=== PATIENT | male | born 1950 | race Asian ===

== ENCOUNTER 2018-05-04 03:36 | Emergency (ER) | payer SELFPAY ==
[~2018-05-04] VITALS: Ht 162.6 cm; Wt 59.0 kg
--- NOTE | 2018-05-04 04:02 | Emergency Room Report ---
History of Present Illness General Chief Complaint: Altered Level of Consciousness Source: Patient, Friend, EMS Present Illness HPI This is a Italian male unknown medical history. He presents with alcohol intoxication. Les called 911 because he and his friend was sitting on the sidewalk very intoxicated. There were drinking tonight. Because of language barrier, he did not know where his address was so they brought him here for evaluation. Patient denies any pain. There was no trauma. Allergies: Coded Allergies: UNABLE TO ASSESS (Unverified , 05/04/18) Patient History Past Medical History: see triage record, old chart reviewed Past Surgical History: other Pertinent Family History: none Social History: Reports: alcohol use Immunizations: other Reviewed Nursing Documentation: PMH: Agreed; PSxH: Agreed Nursing Documentation-PMH Past Medical History Deferred: Pt Cognitively Impaired Review of Systems Eye: Denies: eye pain, blurred vision ENT: Denies: ear pain, nose congestion, throat swelling Respiratory: Denies: cough, shortness of breath Cardiovascular: Denies: chest pain, palpitations Gastrointestinal: Denies: abdominal pain, diarrhea, nausea, vomiting Musculoskeletal: Denies: back pain, joint pain Skin: Denies: rash Neurological: Denies: headache, numbness Endocrine: Denies: increased thirst, increased urine Hematologic/Lymphatic: Denies: easy bruising All Other Systems: limited - secondary to intoxication Physical Exam Vital Signs Date Time Temp Pulse Resp B/P (MAP) Pulse Ox O2 Delivery O2 Flow Rate FiO2 05/04/18 03:37 98.6 86 16 124/76 98 Room Air 98.6 vitals normal Sp02 EP Interpretation: reviewed, normal General Appearance: well appearing, no apparent distress, alert, other - intoxicated Head: normocephalic, atraumatic Eyes: bilateral eye PERRL, bilateral eye EOMI ENT: hearing grossly normal, normal pharynx Neck: full range of motion, supple, no meningismus Respiratory: chest non-tender, lungs clear, normal breath sounds Cardiovascular #1: regular rate, rhythm, no murmur Gastrointestinal: normal bowel sounds, non tender, no mass, no organomegaly, no bruit, non-distended Musculoskeletal: back normal, normal range of motion Neurologic: grossly normal Psychiatric: mood/affect normal Skin: warm/dry Medical Decision Making Diagnostic Impression: Primary Impression: Alcohol intoxication Qualified Codes: F10.920 - Alcohol use, unspecified with intoxication, uncomplicated ER Course Patient with alcohol intoxication. No trauma to warrant CT scan or x-ray. Will call family to see the can pick him up. If not we'll observe until clinical sobriety. Last Vital Signs Date Time Temp Pulse Resp B/P (MAP) Pulse Ox O2 Delivery O2 Flow Rate FiO2 05/04/18 03:37 98.6 86 16 124/76 98 Room Air 98.6 Status: improved Disposition: HOME, SELF-CARE Condition: Stable Additional Instructions: Stop drinking to excess. Follow-up with your doctor in 7 days. Return if worse. ANAYELI KRISHNAMURTHY M.D. May 04, 2018 04:02
[2018-05-04 04:27] VITALS: BP 124/76
[2018-05-04 07:39] VITALS: BP 151/83
[2018-05-04 10:23] VITALS: BP 151/83
== END 2018-05-04 10:23 | disposition home or self-care (01) ==
LOC: EDBD 03:36 → EMR 03:54
DX: F10.929 Alcohol use, unspecified with intoxication, unspecified (principal)
CPT/HCPCS: 99284

== ENCOUNTER 2020-03-04 16:29 | Emergency (ER) | payer OTHER ==
[~2020-03-04] VITALS: Ht 170.2 cm; Wt 77.1 kg
--- NOTE | 2020-03-04 16:29 | NUR ---
ED Nurse Note: Pt BIBA unit 29 from [facility]. Pt found lying on floor due to weakness. No LOC. Pt had BS of 261. Pt has history of diabetes. Set up on monitor. He is alert adn ox4, weak. GHADA has seen pt.
--- NOTE | 2020-03-04 16:34 | Emergency Room Report ---
History of Present Illness General Chief Complaint: Generalized Weakness Source: EMS Present Illness HPI 70 Yo male brought in by EMS from adult living facility. Pt c/o weakness and dizziness that is not vertigo x 30 minutes, without visual/hearing changes. 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 Pt. has hx of DM and unknown heart problem. Pt. denies CP, palpitations, SOB or cough. Pt. denies pain, denies nausea or vomiting. Denies hitting his head. Denies constipation or diarrhea. Denies fevers or chills. Pt. reports he is supposed to take Insulin however He self-d/c'd for almost a month now because it was causing him abdominal pain at the injection site. Allergies: Coded Allergies: No Known Allergies (Unverified , 03/04/20) COVID-19 Screening Contact w/high risk pt: No Experienced COVID-19 symptoms?: No COVID-19 Testing performed CLAM DIGGER: No Patient History Past Medical History: see triage record, DM, CVA/TIA, other - BPH Past Surgical History: unable to obtain Pertinent Family History: unable to obtain Reviewed Nursing Documentation: PMH: Agreed; PSxH: Agreed Nursing Documentation-PMH Past Medical History: No History, Except For Hx Hypertension: Yes Hx Diabetes: Yes Hx Cerebrovascular Accident: Yes - 2013 left side deficit Review of Systems All Other Systems: negative except mentioned in HPI Physical Exam Vital Signs Date Time Temp Pulse Resp B/P (MAP) Pulse Ox O2 Delivery O2 Flow Rate FiO2 03/04/20 16:25 80 18 108/76 (87) 98 Room Air Medical Decision Making PA Attestation Dr. Ray is my supervising Physician whom patient management has been discussed with. Diagnostic Impression: Primary Impression: Hyperglycemia Additional Impression: Spell of generalized weakness ER Course 70 Yo male brought in by EMS from adult living facility. Pt c/o weakness and dizziness that is not vertigo x 30 minutes, without visual/hearing changes. 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 Pt. has hx of DM and unknown heart problem. Pt. denies CP, palpitations, SOB or cough. Pt. denies pain, denies nausea or vomiting. Denies hitting his head. Denies constipation or diarrhea. Denies fevers or chills. Pt. reports he is supposed to take Insulin however He self-d/c'd for almost a month now because it was causing him abdominal pain at the injection site. Ddx considered but are not limited to Mnire's, BPPV, labyrinthitis, cerebellar stroke, hypovolemia, cardiac cause, Hyperglycemia. Vital signs: are WNL, pt. is afebrile H&PE are most consistent with :[ ] No focal deficit to indicate TIA or CVA. No vertical nystagmus. Better after IV fluid. Because of lack of focality and red flags, I see no need for CT scan. ORDERS: -CMP: unremarkable other than elevated glucose of 291 -Troponins, CK-MB, CK- all negative -CXR: unremarkable/ WNL ED INTERVENTIONS: - 2 Liters NS IV DISCHARGE: At this time pt. is stable for d/c to home. Will provide printed patient care instructions, and any necessary prescriptions. Care plan and follow up instructions have been discussed with the patient prior to discharge. Labs Test 03/04/20 16:45 03/04/20 16:46 White Blood Count 8.2 K/UL (4.8-10.8) Red Blood Count 4.50 M/UL (4.70-6.10) Hemoglobin 14.4 G/DL (14.2-18.0) Hematocrit 40.7 % (42.0-52.0) Mean Corpuscular Volume 90 FL (80-99) Mean Corpuscular Hemoglobin 32.0 PG (27.0-31.0) Mean Corpuscular Hemoglobin Concent 35.3 G/DL (32.0-36.0) Red Cell Distribution Width 11.8 % (11.6-14.8) Platelet Count 158 K/UL (150-450) Mean Platelet Volume 7.9 FL (6.5-10.1) Neutrophils (%) (Auto) 62.6 % (45.0-75.0) Lymphocytes (%) (Auto) 30.1 % (20.0-45.0) Monocytes (%) (Auto) 5.5 % (1.0-10.0) Eosinophils (%) (Auto) 1.2 % (0.0-3.0) Basophils (%) (Auto) 0.7 % (0.0-2.0) Prothrombin Time 11.2 SEC (9.30-11.50) Prothromb Time International Ratio 1.0 (0.9-1.1) Activated Partial Thromboplast Time 23 SEC (23-33) Sodium Level 139 MMOL/L (136-145) Potassium Level 4.3 MMOL/L (3.5-5.1) Chloride Level 102 MMOL/L (98-107) Carbon Dioxide Level 28 MMOL/L (21-32) Anion Gap 9 mmol/L (5-15) Blood Urea Nitrogen 16 mg/dL (7-18) Creatinine 1.2 MG/DL (0.55-1.30) Estimat Glomerular Filtration Rate 59.9 mL/min (>60) Glucose Level 294 MG/DL (74-106) Calcium Level 9.2 MG/DL (8.5-10.1) Total Bilirubin 0.6 MG/DL (0.2-1.0) Aspartate Amino Transf (AST/SGOT) 21 U/L (15-37) Alanine Aminotransferase (ALT/SGPT) 22 U/L (12-78) Alkaline Phosphatase 96 U/L (46-116) Total Creatine Kinase 38 U/L (26-308) Troponin I 0.000 ng/mL (0.000-0.056) Total Protein 7.7 G/DL (6.4-8.2) Albumin 3.7 G/DL (3.4-5.0) Globulin 4.0 g/dL Albumin/Globulin Ratio 0.9 (1.0-2.7) Serum Alcohol < 3 mg/dL POC Whole Blood Glucose 281 MG/DL (74-106) EKG Diagnostic Results EP Interpretation: Dr. Ray Rate: normal - 70 bpm Rhythm: NSR ST Segments: no acute changes ASA given to the pt in ED: No PA Scribe Text This Interpretation was scribed by JANELLE Gastelum. Chest X-Ray Diagnostic Results Chest X-Ray Diagnostic Results : Chest X-Ray Ordered: Yes # of Views/Limited/Complete: 1 View Indication: Chest Pain EP Interpretation: Yes JANELLE Xray: Interpretation reviewed, by supervising MD, and agrees with findings. Interpretation: no consolidation, no effusion, no pneumothorax, no acute cardiopulmonary disease Impression: No acute disease Electronically Signed by: Aliya Gastelum PA-C Last Vital Signs Date Time Temp Pulse Resp B/P (MAP) Pulse Ox O2 Delivery O2 Flow Rate FiO2 7/26/20 16:25 80 18 108/76 (89) 98 Room Air Disposition: HOME, SELF-CARE Condition: Stable Patient Instructions: How and Where to Give Subcutaneous Insulin Injections, Adult, Hyperglycemia, [id number], Weakness Additional Instructions: Take your Previously prescribed medications as directed. IT IS IMPORTANT TO TAKE YOUR PRESCRIBED INSULIN. Follow up with a Primary Care Provider in 3-5 days, even if your symptoms have resolved. Return sooner to ED if new symptoms occur, or current symptoms become worse. - Please note that this Emergency Department Report was dictated using Where[employer] prevention consultant technology software, occasionally this can lead to erroneous entry secondary to interpretation by the dictation equipment. Aliya Gastelum Mar 04, 2020 16:34
[2020-03-04 16:53] VITALS: BP 110/79
--- NOTE | 2020-03-04 17:04 | Diagnostic Imaging Report ---
EXAM: XR Chest, 1 View CLINICAL HISTORY: DIZZY TECHNIQUE: Frontal view of the chest. COMPARISON: No relevant prior studies available. FINDINGS: Lungs: Unremarkable. No consolidation. Pleural space: Unremarkable. No pneumothorax. Heart: Unremarkable. No cardiomegaly. Mediastinum: Unremarkable. Bones/joints: No acute abnormality IMPRESSION: Unremarkable chest.
[2020-03-04 17:18] LABS: ANION GAP 9 mmol/L (5-15); BLOOD UREA NITROGEN 16 mg/dL (7-18); CALCIUM 9.2 MG/DL (8.5-10.1); CARBON DIOXIDE 28 MMOL/L (21-32); CHLORIDE 102 MMOL/L (98-107); CREATININE 1.2 MG/DL (0.55-1.30); POTASSIUM 4.3 MMOL/L (3.5-5.1); SODIUM 139 MMOL/L (136-145)
[2020-03-04 17:21] LABS: ALANINE AMINOTRANSFERASE 22 U/L (12-78); ALBUMIN 3.7 G/DL (3.4-5.0); ALBUMIN/GLOBULIN RATIO 0.9 (1.0-2.7); ALKALINE PHOSPHATASE 96 U/L (46-116); ASPARTATE AMINO TRANSFERASE 21 U/L (15-37); BASOPHILS % (AUTO) 0.7 % (0.0-2.0); BILIRUBIN,TOTAL 0.6 MG/DL (0.2-1.0); CREATINE KINASE 38 U/L (26-308); EOSINOPHILS % (AUTO) 1.2 % (0.0-3.0); HEMATOCRIT 40.7 % (42.0-52.0); HEMOGLOBIN 14.4 G/DL (14.2-18.0); LYMPHOCYTES % (AUTO) 30.1 % (20.0-45.0); MEAN CORPUSCULAR VOLUME 90 FL (80-99); MONOCYTES % (AUTO) 5.5 % (1.0-10.0); NEUTROPHILS % (AUTO) 62.6 % (45.0-75.0); PLATELET COUNT 158 K/UL (150-450); RED CELL DISTRIBUTION WIDTH 11.8 % (11.6-14.8); WHITE BLOOD COUNT 8.2 K/UL (4.8-10.8)
--- NOTE | 2020-03-04 19:02 | NUR ---
ED Nurse Note: PA aware that pt unable to provide urine sample and refuses straight cath.
[2020-03-04 19:03] VITALS: BP 103/76
--- NOTE | 2020-03-04 19:11 | NUR ---
HAND-OFF: Report given to Bailey DAWSON.
--- NOTE | 2020-03-04 19:13 | NUR ---
ED Nurse Note: Received report from EUNICE Freeman. Patient resting in bed, no acute distress noted. Urine sent to lab.
[2020-03-04] MEDS ORDERED: Insulin Human Regular 100units/ml 3ml IV ONE (19:15)
--- NOTE | 2020-03-04 19:43 | NUR ---
ED Nurse Note: Patient reassessed, patient able to ambulate with cane, denies dizziness. Accucheck 245 mg/dL ERPA informed.
[2020-03-04 20:03] LABS: APPEARANCE,URINE CLEAR; BILIRUBIN, URINE NEGATIVE (NEGATIVE); COLOR,URINE PALE YELLOW; GLUCOSE, URINE (UA) 4+ (NEGATIVE); KETONES,URINE NEGATIVE (NEGATIVE); LEUKOCYTE ESTERASE ,URINE NEGATIVE (NEGATIVE); NITRITE,URINE NEGATIVE (NEGATIVE); PH,URINE 7 (4.5-8.0); PROTEIN,URINE NEGATIVE (NEGATIVE); UROBILINOGEN,URINE NORMAL MG/DL (0.0-1.0)
[2020-03-04 21:40] VITALS: BP 111/72
--- NOTE | 2020-03-04 21:40 | NUR ---
ER DISCHARGE NOTE: Patient is cleared to be discharged per ERMD, pt is aox4, on room air, with stable vital signs. pt was given dc instructions, pt was able to verbalize understanding, pt id band and iv site removed intact without complications. pt is able to ambulate with cane. pt took all belongings. pt transported back to nursing facility with a taxi voucher. pt stable upon dishcarge.
== END 2020-03-04 21:40 | disposition home or self-care (01) ==
LOC: EDBD 16:29 → EMR 17:10
DX: E11.65 Type 2 diabetes mellitus with hyperglycemia (principal); G81.94 Hemiplegia, unspecified affecting left nondominant side; I10 Essential (primary) hypertension
CPT/HCPCS: 36415; 71045; 80053; 81003; 82550; 82962; 84484; 85025; 85610; 85730; 93005; 96361; 96374; 99284; G0480; J1815; J7030